=== PATIENT | male | born 1970 | race African-American/Black ===

== ENCOUNTER 2019-01-12 12:52 | Emergency (ER) | payer BC ==
[2019-01-12] MEDS ORDERED: EPINEPHRINE INJ/PF 1 MG/1 ML AMPULE ONE (13:02)
[2019-01-12] MEDS ORDERED: NORMAL SALINE 250 ML IV PRN (13:04)
[2019-01-12] MEDS ORDERED: TRANEXAMIC ACID INJ/PF 1,000 MG/10 ML SDV IV ONE (13:06)
[2019-01-12] MEDS ORDERED: EPINEPHRINE INJ/PF 1 MG/1 ML AMPULE IM ONE (14:34)
--- NOTE | 2019-01-12 16:30 | ER Document Report ---
ED General - General Chief Complaint: Allergic Reaction Stated Complaint: LIP SWELLING Time Seen by Provider: 01/12/19 13:04 Mode of Arrival: Ambulatory Information source: Patient, [facility] Records Notes: 48-year-old male with untreated hypertension presents with upper lip swelling. Patient states that he took 2 tabs of his 's lisinopril yesterday and awoke this morning with right-sided lip swelling that slowly progressed to include the entire upper lip. Patient denies any difficulty swallowing, rash, shortness of breath, wheezing. He denies prior similar symptoms. - HPI Onset: This morning Onset/Duration: Gradual Quality of pain: No pain Severity: None Pain Level: Denies Associated symptoms: denies: Chest pain, Productive cough, Fever, Nausea, Vomiting, Shortness of breath, Sore throat Exacerbated by: Denies Relieved by: Denies Similar symptoms previously: No Recently seen / treated by doctor: No - Related Data Allergies/Adverse Reactions: lisinopril Allergy (Verified 01/12/19 13:07) Past Medical History - General Information source: Patient, Relative - Social History Smoking Status: Never Smoker Frequency of alcohol use: None Drug Abuse: None Lives with: Spouse/Significant other Family History: Reviewed & Not Pertinent Patient has suicidal ideation: No Patient has homicidal ideation: No - Past Medical History Cardiac Medical History: Reports: Hx Hypertension Renal/ Medical History: Denies: Hx Peritoneal Dialysis Review of Systems - Review of Systems Notes: REVIEW OF SYSTEMS: CONSTITUTIONAL : Denies fever, chills, or sweats. Denies recent illness. Denies weight loss, recent hospitalizations. EENT: Denies visual changes, eye pain. Denies sore throat, oral lesions, difficulty swallowing. CARDIOVASCULAR: Denies chest pain. Denies palpitations. Denies lower extremity edema. RESPIRATORY: Denies cough. Denies shortness of breath, wheezing. GASTROINTESTINAL: Denies abdominal pain or distention. Denies nausea, vomiting, or diarrhea. Denies blood in vomitus, stools, or per rectum. Denies black, tarry stools. Denies constipation. GENITOURINARY: Denies difficulty urinating, painful urination, frequency, blood in urine, testicular pain or penile discharge. MUSCULOSKELETAL: Denies back or neck pain or stiffness. Denies joint pain or swelling. SKIN: Denies rash, lesions or sores. HEMATOLOGIC : Denies easy bruising or bleeding. LYMPHATIC: Denies swollen glands. NEUROLOGICAL: Denies confusion or altered mental status. Denies loss of con sciousness. Denies dizziness or lightheadedness. Denies headache. Denies weakness or paralysis. Denies problems difficulty with ambulation, slurred speech. Denies sensory loss, numbness, or tingling. Denies seizures. PSYCHIATRIC: Denies anxiety or stress. Denies depression, suicidal ideation, or Physical Exam - Vital signs Vitals: Resp BP Pulse Ox 30 H 210/134 H 100 01/12/19 12:58 01/12/19 12:58 01/12/19 12:58 - Notes Notes: PHYSICAL EXAMINATION: GENERAL: Well-appearing, well-nourished and in no acute distress. HEAD: Atraumatic, normocephalic. EYES: Pupils equal round and reactive to light, extraocular movements intact, sclera anicteric, conjunctiva are normal. ENT: Nares patent, oropharynx clear without exudates. Moist mucous membranes. Upper lip swelling. No tongue swelling, lower lip swelling. Airway patent, no stridor, uvula midline NECK: Normal range of motion, supple without lymphadenopathy LUNGS: Breath sounds clear to auscultation bilaterally and equal. No wheezes rales or rhonchi. HEART: Regular rate and rhythm without murmurs ABDOMEN: Soft, nontender, nondistended abdomen. No guarding, no rebound. No masses appreciated. Musculoskeletal: Normal range of motion, no pitting or edema. No cyanosis. NEUROLOGICAL: Cranial nerves grossly intact. Normal speech, normal gait. Normal sensory, motor exams PSYCH: Normal mood, normal affect. SKIN: Warm, Dry, normal turgor, no rashes or lesions noted. Course - Re-evaluation Re-evalutation: 01/12/19 16:27 Patient presents with angioedema. Swelling as located in the upper lip only. Patient did receive epinephrine, Benadryl and Pepcid prior to arrival. Upon arrival to the emergency department 2 more rounds of IM epi 0.3 mg was administered. Patient also received FFP and TXA. On reevaluation lip swelling is improved. Patient has had no difficulty swallowing, shortness of breath and states that he is feeling better. is at the bedside and states that she is comfortable with discharge home. Return precautions discussed with the patient and his at length. Patient will be discharged home with prednisone, Pepcid and IM epinephrine. - Vital Signs Vital signs: Temp Pulse Resp BP Pulse Ox 98.5 F 78 20 174/121 H 100 01/12/19 17:07 01/12/19 17:07 01/12/19 17:07 01/12/19 17:07 01/12/19 17:07 Discharge - Discharge Clinical Impression: Angioedema Qualifiers: Encounter type: initial encounter Qualified Code(s): T78.3XXA - Angioneurotic edema, initial encounter Hypertension Qualifiers: Hypertension type: unspecified Qualified Code(s): I10 - Essential (primary) hypertension Condition: Good Disposition: HOME, SELF-CARE Instructions: Angioedema ([facility]), High Blood Pressure ([facility]) Additional Instructions: You have been diagnosed with angioedema today. This is related to a medication you are taking called lisinopril. You may never take this medication again as you could have a recurrence of an even more severe version of what brought you to to the emergency department today. Please have your primary care physician for recommendations for alternative blood pressure medications. Your swelling will resolve over the next several days. Return to emergency room immediately if you have worsening swelling, shortness of breath, difficulty swallowing, noticed a change in your voice, or have any other symptoms that are of concern to you. Prescriptions: Epinephrine [Epipen] 0.3 mg IJ ONCE PRN #1 auto.injct PRN Reason: Famotidine [Pepcid 40 mg Tablet] 40 mg PO DAILY #5 tablet Prednisone [Deltasone 20 mg Tablet] 3 tab PO DAILY 5 Days #15 tablet Forms: Elevated Blood Pressure, Return to Work
[2019-01-12 17:09] VITALS: BP 174/121
--- NOTE | 2019-01-12 19:29 | EKG REPORT ---
SEVERITY:- ABNORMAL ECG - SINUS RHYTHM PROBABLE LEFT ATRIAL ABNORMALITY PROBABLE LVH WITH SECONDARY REPOL ABNRM NONSPECIFIC ST-T CHANGES- INFERIOR LEADS : Confirmed by: Hugh Fernandez MD 12-Jan-2019 19:28:46
== END 2019-01-12 17:07 | disposition home or self-care (01) ==
LOC: ER 12:52
DX: T78.3XXA Angioneurotic edema, initial encounter (principal); Z88.8 Allergy status to other drugs, medicaments and biological substances
CPT/HCPCS: 93005; 99284; 96372; 86900; 86901; 36415; 36430; 93010; P9017; J0171; J7050; J3490